=== PATIENT | male | born 1960 | race Caucasian/White ===

== ENCOUNTER 2020-01-26 07:00 | Outpatient (CLI) | payer MEDICARE | END 2020-01-26 23:59 | disposition home or self-care (01) | LOC: LAB.R 07:00 | PROVIDERS: ATTEND Physician Assistant Medical | DX: L03.116 Cellulitis of left lower limb (principal) | CPT/HCPCS: 87070; 87205 ==

== ENCOUNTER 2020-01-26 07:00 | Outpatient (CLI) | payer MEDICARE ==
[2020-01-26 15:24] LABS: BASOPHILS # (AUTO) 0.1 10^3/uL (0.0-0.1); BASOPHILS % (AUTO) 0.5 %; EOSINOPHILS # (AUTO) 0.1 10^3/uL (0.0-0.7); EOSINOPHILS % (AUTO) 0.9 %; HGB - HEMOGLOBIN 13.7 g/dL (14.0-18.0); LYMPHOCYTES # (AUTO) 2.3 10^3/uL (1.5-3.5); LYMPHOCYTES % (AUTO) 25.3 %; MEAN CORPUSCULAR HEMOGLOBIN 33.3 pg (27.0-31.0); MEAN CORPUSCULAR VOLUME 97.8 fL (80.0-94.0); MEAN PLATELET VOLUME 8.9 fL (7.4-11.4); MONOCYTES # (AUTO) 1.2 10^3/uL (0.0-1.0); MONOCYTES % (AUTO) 12.7 %; NEUTROPHILS # (AUTO) 5.5 10^3/uL (1.5-6.6); NEUTROPHILS % (AUTO) 60.2 %; PLT - PLATELET COUNT 313 10^3/uL (130-450); RED BLOOD COUNT 4.12 10^6/uL (4.70-6.10); RED CELL DISTRIBUTION WIDTH 13.5 % (12.0-15.0); WHITE BLOOD COUNT 9.1 x10^3/uL (4.8-10.8)
[2020-01-26 15:30] LABS: ALBUMIN 3.7 g/dL (3.2-5.5); ALBUMIN/GLOBULIN RATIO 1.2 (1.0-2.2); BILIRUBIN,TOTAL 0.5 mg/dL (0.2-1.0); CALCIUM 8.9 mg/dL (8.5-10.3); CREATININE 0.9 mg/dL (0.6-1.2); TOTAL PROTEIN 6.8 g/dL (6.7-8.2)
== END 2020-01-26 23:59 | disposition home or self-care (01) ==
LOC: LAB.S 07:00
PROVIDERS: ATTEND Physician Assistant Medical
DX: L03.116 Cellulitis of left lower limb (principal); R00.0 Tachycardia, unspecified
CPT/HCPCS: 36415; 80053; 84443; 85025; 87070; 87205

== ENCOUNTER 2021-02-12 09:18 | Outpatient (CLI) | payer MEDICARE ==
[2021-02-12 15:51] LABS: CREATININE 0.8 mg/dL (0.6-1.2); POTASSIUM 4.3 mmol/L (3.5-5.0)
== END 2021-02-12 09:19 | disposition home or self-care (01) ==
LOC: LAB.S 09:18
PROVIDERS: ATTEND Nurse Practitioner Family
DX: E87.1 Hypo-osmolality and hyponatremia (principal)
CPT/HCPCS: 36415; 80048

== ENCOUNTER 2021-03-01 09:50 | Observation (INO) | payer MEDICARE ==
--- NOTE | 2021-03-01 10:09 | ED Physician Documentation ---
PD HPI DYSPNEA - Stated complaint Stated Complaint: SOA - Chief complaint Chief Complaint: Resp - History obtained from History obtained from: Patient - History of Present Illness Timing - onset: How many days ago (3-4 days of progressive dyspnea and orthopnea.) Timing - onset during: Light activity Timing - duration: Days Timing - details: Gradual onset, Still present Inciting event(s): No: Out of meds, URI Improved by: Rest, Sitting up Worsened by: Exertion, Laying flat Associated symptoms: Palpitations, Bilateral edema. No: Fever, Cough, Wheezing, Chest pain / discomfort Similar symptoms before: Diagnosis (CHF with atrial fib rapid rate a year ago) Recently seen: Not recently seen Review of Systems Constitutional: denies: Fever, Chills Nose: denies: Rhinorrhea / runny nose, Congestion Throat: denies: Sore throat Cardiac: reports: Palpitations, Pedal edema. denies: Chest pain / pressure, Calf pain Respiratory: reports: Dyspnea. denies: Cough, Wheezing GI: reports: Nausea. denies: Abdominal Pain, Vomiting, Diarrhea Musculoskeletal: denies: Neck pain, Back pain Neurologic: reports: Generalized weakness. denies: Focal weakness, Numbness, Near syncope, Altered mental status, Headache PD PAST MEDICAL HISTORY - Past Medical History Cardiovascular: Congestive heart failure, Hypertension, Atrial fibrillation Respiratory: None Neuro: None Endocrine/Autoimmune: None - Past Surgical History Past Surgical History: Yes - Present Medications Home Medications: Ambulatory Orders Medication Instructions Recorded Confirmed Apixaban [Eliquis] 5 mg PO BID #60 tablet 02/06/20 Spironolactone [Aldactone] 25 mg PO DAILY #30 tablet 02/06/20 Furosemide [Lasix] 40 mg PO DAILY #6 tablet 03/01/21 carvediloL [Coreg] 6.25 mg PO BIDWM 03/01/21 03/01/21 dilTIAZem HCL [Diltiazem 24Hr ER 240 mg PO DAILY 03/01/21 03/01/21 (Xr)] lisinopriL [Lisinopril] 40 mg PO DAILY 03/01/21 03/01/21 - Allergies Allergies/Adverse Reactions: Allergies Allergy/AdvReac Type Severity Reaction Status Date / Time No Known Drug Allergies Allergy Verified 03/01/21 09:58 - Social History Does the pt smoke?: Yes Smoking Status: Current every day smoker Does the pt drink ETOH?: No Does the pt have substance abuse?: No PD ED PE NORMAL - Vitals Vital signs reviewed: Yes - General General: Alert and oriented X 3, Well developed/nourished - HEENT HEENT: Moist mucous membranes, Pharynx benign - Neck Neck: Supple, no meningeal sign, No adenopathy - Cardiac Cardiac: No: RRR (irregular and fast rate. ) - Respiratory Respiratory: No: Clear bilaterally (crackles bilateral lower lieberman. ) - Abdomen Abdomen: Soft, Non tender. No: Normal bowel sounds (decreased bowel sounds. ) - Back Back: No CVA TTP - Derm Derm: Normal color, Warm and dry - Extremities Extremities: No tenderness to palpate, Normal ROM s pain, No calf tenderness / cord, Other (2+ edema both lower legs. ) - Neuro Neuro: Alert and oriented X 3, No motor deficit, Normal speech Results - Vitals Vitals: Vital Signs - 24 hr 03/01/21 03/01/21 03/01/21 09:52 10:59 11:57 Temperature 36.6 C Heart Rate 108 H 82 62 Respiratory 22 14 24 Rate Blood Pressure 141/93 H 150/97 H O2 Saturation 95 98 Oxygen O2 Source Room air - EKG (time done) 10:16 Rate: Rate (enter#) (118) Rhythm: Atrial fibrillation [place]: RAD Intervals: Wide QRS Ischemia: Normal ST segments. No: ST elevation c/w ischemia, ST depression Compare to prior EKG: Unchanged from prior EKG - Labs Labs: Laboratory Tests 03/01/21 03/01/21 03/01/21 10:30 10:30 10:30 WBC 7.2 RBC 4.79 Hgb 14.9 Hct 43.9 MCV 91.6 MCH 31.1 H MCHC 33.9 RDW 14.6 Plt Count 227 MPV 8.6 Neut # (Auto) 4.6 Lymph # (Auto) 1.7 Snyder # (Auto) 0.9 Eos # (Auto) 0.0 Baso # (Auto) 0.0 Absolute Nucleated RBC 0.00 Nucleated RBC % 0.0 Sodium 133 L Potassium 4.1 Chloride 100 L Carbon Dioxide 23 Anion Gap 10.0 BUN 10 Creatinine 0.6 Estimated GFR (MDRD) 137 Glucose 110 H Calcium 9.0 Magnesium Total Bilirubin 1.3 H AST 22 ALT 27 Alkaline Phosphatase 113 Troponin I High Sens 27.0 H* B-Natriuretic Peptide Total Protein 7.4 Albumin 3.9 Globulin 3.5 Albumin/Globulin Ratio 1.1 Lipase 32 Nasal Adenovirus (PCR) Nasal B. parapertussis DNA (PCR) Nasal Coronavir 229E PCR Nasal Coronavir HKU1 PCR Nasal Coronavir NL63 PCR Nasal Coronavir OC43 PCR Nasal Enterovir/Rhinovir PCR Nasal Influenza B PCR Nasal Influenza A PCR Nasal Parainfluen 1 PCR Nasal Parainfluen 2 PCR Nasal Parainfluen 3 PCR Nasal Parainfluen 4 PCR Nasal RSV (PCR) Nasal B.pertussis DNA PCR Nasal C.pneumoniae (PCR) Trevon Human Metapneumo PCR Nasal M.pneumoniae (PCR) Nasal SARS-CoV-2 (PCR) 03/01/21 03/01/21 03/01/21 10:30 10:30 11:35 WBC RBC Hgb Hct MCV MCH MCHC RDW Plt Count MPV Neut # (Auto) Lymph # (Auto) Snyder # (Auto) Eos # (Auto) Baso # (Auto) Absolute Nucleated RBC Nucleated RBC % Sodium Potassium Chloride Carbon Dioxide Anion Gap BUN Creatinine Estimated GFR (MDRD) Glucose Calcium Magnesium 2.0 Total Bilirubin AST ALT Alkaline Phosphatase Troponin I High Sens B-Natriuretic Peptide 1252 H Total Protein Albumin Globulin Albumin/Globulin Ratio Lipase Nasal Adenovirus (PCR) NOT DETECTED Nasal B. parapertussis DNA (PCR) NOT DETECTED Nasal Coronavir 229E PCR NOT DETECTED Nasal Coronavir HKU1 PCR NOT DETECTED Nasal Coronavir NL63 PCR NOT DETECTED Nasal Coronavir OC43 PCR NOT DETECTED Nasal Enterovir/Rhinovir PCR NOT DETECTED Nasal Influenza B PCR NOT DETECTED Nasal Influenza A PCR NOT DETECTED Nasal Parainfluen 1 PCR NOT DETECTED Nasal Parainfluen 2 PCR NOT DETECTED Nasal Parainfluen 3 PCR NOT DETECTED Nasal Parainfluen 4 PCR NOT DETECTED Nasal RSV (PCR) NOT DETECTED Nasal B.pertussis DNA PCR NOT DETECTED Nasal C.pneumoniae (PCR) NOT DETECTED Trevon Human Metapneumo PCR NOT DETECTED Nasal M.pneumoniae (PCR) NOT DETECTED Nasal SARS-CoV-2 (PCR) NOT DETECTED - Rads (name of study) chest xray Radiology: Prelim report reviewed (c/w CHF), See rad report PD MEDICAL DECISION MAKING - ED course Complexity details: reviewed results, re-evaluated patient (The patient was going to be admitted for further care in the hospitalist talked with him. Subsequent to that however he states he did not want to stay in the hospital as he had pets at home to take care of and declined admission.), considered differential (He is having some improvement in breathing with decreased heart rate and blood pressure. However he has not diuresed much yet. I think this will be a longer process for improvement and I will talk with the hospitalist.), d/w patient ED course: He did diurese about 400 mL with a dose of IV Lasix. His breathing was feeling some improved. Redose of the Lasix. Subsequently he put out another 500 mL. He still had some shortness of breath but much less tachypneic than he was. His heart rate is improved with the extra dose of metoprolol. I think it will still be a little bit longer process to improve but he is insistent on going home after subsequent initial agreeing to a hospitalization. Departure - Departure Disposition: 01 Home, Self Care Clinical Impression: Tachycardia CHF (congestive heart failure) Qualifiers: Heart failure type: unspecified Heart failure chronicity: acute on chronic Qualified Code(s): I50.9 - Heart failure, unspecified Dyspnea Qualifiers: Dyspnea type: shortness of breath Qualified Code(s): R06.02 - Shortness of breath Atrial fibrillation Qualifiers: Atrial fibrillation type: unspecified chronic Qualified Code(s): I48.20 - Chronic atrial fibrillation, unspecified Condition: Stable Record reviewed to determine appropriate education?: Yes Discharge Date/Time: 03/01/21 14:18
[2021-03-01 10:39] LABS: BASOPHILS % (AUTO) 0.4 %; EOSINOPHILS % (AUTO) 0.4 %; HCT - HEMATOCRIT 43.9 % (42.0-52.0); HGB - HEMOGLOBIN 14.9 g/dL (14.0-18.0); LYMPHOCYTES # (AUTO) 1.7 10^3/uL (1.5-3.5); LYMPHOCYTES % (AUTO) 23.4 %; MEAN CORPUSCULAR HEMOGLOBIN 31.1 pg (27.0-31.0); MEAN CORPUSCULAR HGB CONC 33.9 g/dL (32.0-36.0); MEAN CORPUSCULAR VOLUME 91.6 fL (80.0-94.0); MEAN PLATELET VOLUME 8.6 fL (7.4-11.4); MONOCYTES # (AUTO) 0.9 10^3/uL (0.0-1.0); MONOCYTES % (AUTO) 12.6 %; NEUTROPHILS # (AUTO) 4.6 10^3/uL (1.5-6.6); NEUTROPHILS % (AUTO) 63.1 %; PLT - PLATELET COUNT 227 10^3/uL (130-450); RED BLOOD COUNT 4.79 10^6/uL (4.70-6.10); RED CELL DISTRIBUTION WIDTH 14.6 % (12.0-15.0); WHITE BLOOD COUNT 7.2 x10^3/uL (4.8-10.8)
[2021-03-01] MEDS ORDERED: ALBUTEROL 1 PUFF INH STA (10:43)
[2021-03-01] MEDS ORDERED: METOPROLOL 5 MG/5 ML VIAL IVP STA (10:43)
[2021-03-01] MEDS ORDERED: FUROSEMIDE 40 MG/4 ML VIAL IVP STA ×2 (10:43→11:46)
--- NOTE | 2021-03-01 10:49 | XRAY Report ---
PROCEDURE: Chest 1 View X-Ray INDICATIONS: Chest pain TECHNIQUE: One view of the chest was acquired. COMPARISON: 02/05/2020 FINDINGS: Surgical changes and devices: None. Mediastinum: Heart size is enlarged, and there is moderate vascular congestion present. Minimal blunt ing of both costophrenic angles suggests small pleural effusions. No pneumothorax. Atherosclerotic va scular calcification noted in the aortic arch. Bones and chest wall: No suspicious bony lesions. Overlying soft tissues appear unremarkable. IMPRESSION: Cardiomegaly and moderate vascular congestion, increased from the prior Reviewed by: Philippe Shah MD on 03/01/2021 9:47 AM [facility] Approved by: Philippe Shah MD on 03/01/2021 9:47 AM [facility] Station ID: [id number]
[2021-03-01 10:53] LABS: ALBUMIN 3.9 g/dL (3.2-5.5); ALBUMIN/GLOBULIN RATIO 1.1 (1.0-2.2); BILIRUBIN,TOTAL 1.3 mg/dL (0.2-1.0); CREATININE 0.6 mg/dL (0.6-1.2); POTASSIUM 4.1 mmol/L (3.5-5.0); TOTAL PROTEIN 7.4 g/dL (6.7-8.2)
[2021-03-01] MEDS ORDERED: SODIUM CHLORIDE FLUSH 0.9% 10 ML SYRINGE IVP PRN (12:03)
--- NOTE | 2021-03-01 12:40 | HISTORY & PHYSICAL EXAMINATION ---
Chief Complaint - Chief Complaint Chief Complaint: per ED, SOB Per patient History of Present Illness - Admitted From Admitted From:: ED - History Obtained From Records Reviewed: ED, requesting cardiology History obtained from: ED note , patient - History of Present Illness HPI Comment/Other: Per Ed Patient with reported EF of 20% presented dyspneic w/ palpitations, Hx afib.. Reported 55% EF ~ 2 yrs ago. In ED HR 108, Ra sa02 95%, BP 141/93 BNP 1252 Troponin #1 27 CXR w cardiomegaly and moderate vascular congestion Lasix 80 mg in ED w/ response per RN Echo 01/2020; (here) Aflutter thruought, severe global HK EF 20%. moderate LA d ilation. Mild dilated RV, normal fxn RV, mild pHTN RVSP 43mmhg. Severe LUCINDA Valves Mild TR, Aortic valve no stenosis, Trace AR On regimen inappropriate for EF 20 % Lisinopril 40, diltiazem 240, coreg 6.25 bid, sprionolactone 25 mg po daily, apixabn for afib Per patient; History - Past Medical History Cardiovascular: reports: Congestive heart failure, Hypertension Respiratory: reports: None Neuro: reports: None Endocrine/Autoimmune: reports: None Meds/Allgy - Home Medications Home Medications: Ambulatory Orders Medication Instructions Recorded Confirmed Apixaban [Eliquis] 5 mg PO BID #60 tablet 02/06/20 Spironolactone [Aldactone] 25 mg PO DAILY #30 tablet 02/06/20 carvediloL [Coreg] 6.25 mg PO BIDWM 03/01/21 03/01/21 dilTIAZem HCL [Diltiazem 24Hr ER 240 mg PO DAILY 03/01/21 03/01/21 (Xr)] lisinopriL [Lisinopril] 40 mg PO DAILY 03/01/21 03/01/21 - Allergies Allergies/Adverse Reactions: Allergies Allergy/AdvReac Type Severity Reaction Status Date / Time No Known Drug Allergies Allergy Verified 03/01/21 09:58 Exam - Vital Signs Vital Signs: Vital Signs x48h Temp Pulse Resp BP Pulse Ox 03/01/21 11:57 62 24 150/97 H 98 03/01/21 10:59 82 14 03/01/21 09:52 36.6 C 108 H 22 141/93 H 95 Conclusion/Plan - Lab Results Fish Bones: 03/01/21 10:30 03/01/21 10:30
[2021-03-01 12:47] LABS: B. PARAPERTUSSIS- RESP PCR PAN NOT DETECTED; B. PERTUSSIS- RESP PCR PANEL NOT DETECTED; C. PNEUMONIAE- RESP PCR PANEL NOT DETECTED; CORONAVIRUS 229E-RESP PCR NOT DETECTED; CORONAVIRUS HKU1-RESP PCR NOT DETECTED; CORONAVIRUS NL63-RESP PCR NOT DETECTED; CORONAVIRUS OC43-RESP PCR NOT DETECTED; HUMAN METAPNEUMOVIRUS NOT DETECTED; INFLUENZA A- RESP PCR PANEL NOT DETECTED; INFLUENZA B - RESP PCR PANEL NOT DETECTED; M. PNEUMONIAE- RESP PCR PANEL NOT DETECTED; PARAINFLUENZA VIRUS 1 NOT DETECTED; PARAINFLUENZA VIRUS 2 NOT DETECTED; PARAINFLUENZA VIRUS 3 NOT DETECTED; PARAINFLUENZA VIRUS 4 NOT DETECTED; RHINOVIRUS/ENTEROVIRUS NOT DETECTED; RSV- RESP PCR PANEL NOT DETECTED; SARS-CoV-2 -RESP PCR PANEL NOT DETECTED
[2021-03-01] MEDS ORDERED: ENOXAPARIN 40 MG/0.4 ML SYRINGE SUBQ SCH (13:00)
[2021-03-01 14:16] VITALS: BP 144/88
[2021-03-01] MEDS ORDERED: SODIUM CHLORIDE FLUSH 0.9% 10 ML SYRINGE IVP SCH (17:00)
== END 2021-03-01 14:08 | disposition left against medical advice (07) ==
LOC: ED 09:50 → MS2 12:03
PROVIDERS: ADMIT Nurse Practitioner; ATTEND Nurse Practitioner
DX: I11.0 Hypertensive heart disease with heart failure (principal); I50.9 Heart failure, unspecified; R00.0 Tachycardia, unspecified; I48.20 Chronic atrial fibrillation, unspecified; Z20.822 Contact with and (suspected) exposure to COVID-19; R53.1 Weakness; F17.200 Nicotine dependence, unspecified, uncomplicated
CPT/HCPCS: 0202U; 36415; 51798; 80053; 83690; 83735; 83880; 84484; 85025; 93005; 94640; 96374; 99284

== ENCOUNTER 2021-03-11 10:13 | Outpatient (CLI) | payer MEDICARE ==
[2021-03-11 15:50] LABS: ALBUMIN 3.9 g/dL (3.2-5.5); ALBUMIN/GLOBULIN RATIO 1.1 (1.0-2.2); BILIRUBIN,DIRECT 0.4 mg/dL (0.1-0.5); BILIRUBIN,INDIRECT 0.9 mg/dL; BILIRUBIN,TOTAL 1.3 mg/dL (0.2-1.0); CREATININE 0.7 mg/dL (0.6-1.2); POTASSIUM 3.6 mmol/L (3.5-5.0); TOTAL PROTEIN 7.4 g/dL (6.7-8.2)
== END 2021-03-11 10:14 | disposition home or self-care (01) ==
LOC: LAB.S 10:13
PROVIDERS: ATTEND Nurse Practitioner Family
DX: I50.9 Heart failure, unspecified (principal); R17 Unspecified jaundice
CPT/HCPCS: 36415; 80053; 82247; 82248; 83880

== ENCOUNTER 2021-07-29 08:45 | Outpatient (CLI) | payer MEDICARE ==
--- NOTE | 2021-07-29 10:50 | XRAY Report ---
PROCEDURE: Chest 2 View X-Ray INDICATIONS: HEART FAILURE TECHNIQUE: 2 view(s) of the chest. COMPARISON: 03/01/2021 plain film FINDINGS: Surgical changes and devices: None. Lungs and pleura: No pleural effusions or pneumothorax. Moderate basilar predominant interstitial pu lmonary opacity. Mediastinum: Mediastinal contours are normal. Heart size is enlarged. Bones and chest wall: No suspicious bony abnormalities. Soft tissues appear unremarkable. IMPRESSION: Findings consistent with the given history of moderate CHF. Reviewed by: Rehan Feliciano MD on 07/29/2021 10:48 AM [facility] Approved by: Rehan Feliciano MD on 07/29/2021 10:48 AM [facility] Station ID: [id number]
== END 2021-07-29 08:46 | disposition home or self-care (01) ==
LOC: DI.S 08:45
PROVIDERS: ATTEND Internal Medicine
DX: I50.9 Heart failure, unspecified (principal)

== ENCOUNTER 2021-09-19 09:20 | Outpatient (CLI) | payer MEDICARE ==
--- NOTE | 2021-09-19 10:37 | XRAY Report ---
PROCEDURE: Wrist 2 View LT INDICATIONS: PAIN OF LEFT WRIST TECHNIQUE: 2 views of the wrist were acquired. COMPARISON: None FINDINGS: Bones: No fractures or dislocations. Moderate osteoarthritic changes throughout left wrist is seen. No suspicious bony lesions. Scaphoid view: Scaphoid is grossly intact. Soft tissues: No suspicious soft tissue calcifications. IMPRESSION: Moderate wrist joint osteophyte is. No fracture or dislocation. Reviewed by: Jose Nascimento MD on 09/19/2021 10:36 AM PDT Approved by: Jose Nascimento MD on 09/19/2021 10:36 AM PDT Station ID: [id number]
== END 2021-09-19 09:21 | disposition home or self-care (01) ==
LOC: DI.S 09:20
PROVIDERS: ATTEND Internal Medicine
DX: M19.032 Primary osteoarthritis, left wrist (principal)

== ENCOUNTER 2021-11-23 14:52 | Outpatient (CLI) | payer MEDICARE ==
--- NOTE | 2021-11-23 17:21 | XRAY Report ---
PROCEDURE: Hand 3 View LT INDICATIONS: PAIN OF LEFT HAND TECHNIQUE: 3 views of the hand(s) acquired. COMPARISON: None FINDINGS: Bones: No fractures or dislocations. Cortical surface irregularity along the ventral aspect of the f ourth distal phalanx. Fourth DIP joint is held in flexion. Numerous cystic changes seen within the jazmyn yelena of the proximal carpal row. Moderate degeneration at the first CMC joint. No suspicious bony lesi ons. Soft tissues: No suspicious soft tissue calcifications. IMPRESSION: 1. Slight contracture of the fourth DIP joint. 2. Mild cortical irregularity of the fourth distal phalanx suggesting remote trauma. 3. Moderate subcortical cystic changes in the wrist. Reviewed by: Monalisa Mitchell MD on 11/23/2021 5:19 PM PDT Approved by: Monalisa Mitchell MD on 11/23/2021 5:19 PM PDT Station ID: [id number]
== END 2021-11-23 14:53 | disposition home or self-care (01) ==
LOC: DI.S 14:52
PROVIDERS: ATTEND Nurse Practitioner Family
DX: M24.542 Contracture, left hand (principal); R93.6 Abnormal findings on diagnostic imaging of limbs; M85.68 Other cyst of bone, other site

== ENCOUNTER 2022-10-02 07:42 | Emergency (ER) | payer MEDICARE, MEDICAID ==
[2022-10-02 07:51] VITALS: BP 130/88
[2022-10-02] MEDS ORDERED: predniSONE 20 MG TABLET PO STA (08:22)
--- NOTE | 2022-10-02 08:25 | ED Physician Documentation ---
History of Present Illness - Stated complaint Stated Complaint: L FOOT PX - Chief complaint Chief Complaint: Ext Problem - History obtained from History obtained from: Patient - Additonal information Additional information: The patient comes to the emergency department chief complaint of left foot pain. He states that its been hurting for the last few days and he did not have any trauma. He has been using a cane to try to unburden his foot a bit. He notices that it starts over the dorsum and arcs down towards the lateral aspect. He does not feel any popping or clicking. He has no history of prior injury, bone spurs, gout, or neuropathy. He denies any redness. He has noticed a slight bit of swelling over the area of pain. No new issues. He does not have any hip or knee problems on either side. The patient states that he is right side dominant. PD PAST MEDICAL HISTORY - Past Medical History Cardiovascular: Congestive heart failure, Hypertension, Atrial fibrillation Respiratory: None Neuro: None Endocrine/Autoimmune: None - Past Surgical History Past Surgical History: Yes - Present Medications Home Medications: Ambulatory Orders Medication Instructions Recorded Confirmed Apixaban [Eliquis] 5 mg PO BID #60 tablet 02/06/20 Spironolactone [Aldactone] 25 mg PO DAILY #30 tablet 02/06/20 Furosemide [Lasix] 40 mg PO DAILY #6 tablet 03/01/21 carvediloL [Coreg] 6.25 mg PO BIDWM 03/01/21 03/01/21 dilTIAZem HCL [Diltiazem 24Hr ER 240 mg PO DAILY 03/01/21 03/01/21 (Xr)] lisinopriL [Lisinopril] 40 mg PO DAILY 03/01/21 03/01/21 predniSONE [Deltasone] 10 mg PO [id number] #42 tab 10/02/22 - Allergies Allergies/Adverse Reactions: Allergies Allergy/AdvReac Type Severity Reaction Status Date / Time No Known Drug Allergies Allergy Verified 10/02/22 07:51 - Social History Does the pt smoke?: Yes Smoking Status: Current every day smoker Does the pt drink ETOH?: No Does the pt have substance abuse?: No PD ED PE NORMAL - Vitals Vital signs reviewed: Yes - General General: Alert and oriented X 3, No acute distress, Well developed/nourished - HEENT HEENT: Atraumatic, PERRL, EOMI, Moist mucous membranes - Neck Neck: Supple, no meningeal sign - Cardiac Cardiac: Strong equal pulses - Respiratory Respiratory: No respiratory distress - Derm Derm: Warm and dry, Other (Purpleish discoloration of bilateral lower extremities in both hands, consistent with peripheral vascular disease. No erythema.) - Extremities Extremities: No deformity, Other (Minimal edema over left foot with tenderness starting at midline dorsum and extending down over lateral foot. No deformity. No instability. No plantar tenderness. No ankle tenderness.) - Neuro Neuro: Alert and oriented X 3 - Psych Psych: Normal mood, Normal affect Results - Vitals Vitals: Vital Signs - 24 hr 10/02/22 07:48 Temperature 36.0 C L Heart Rate 93 Respiratory 18 Rate Blood Pressure 130/88 H O2 Saturation 99 Oxygen O2 Source Room air - Rads (name of study) Left foot x-ray series Relevant Findings:: Final report received, See rad report (No acute findings) PD Medical Decision Making - ED course Complexity details: reviewed results, re-evaluated patient, considered differential, d/w patient ED course: The patient was treated symptomatically with prednisone in the emergency department, as he is already taking ibuprofen at home. He does have an appointment coming up with podiatry in [place] on November 03, but states he is mainly concerned about wanting to feel better before then. We have discussed nontraumatic potential causes of his foot pain, including soft tissue inflammation, peripheral neuropathy, and gout, though I think the latter is less likely. I do not see any bone spurs on his x-ray series. We discussed that perhaps getting a more cushioned insert for his shoes would be helpful, as he is wearing Real hightops, which are not supportive at all. I have written him a prescription for a cushioned insert. I have also given him the phone number of the podiatry clinic in [place] for an alternative follow-up. Departure - Departure Disposition: 01 Home, Self Care Clinical Impression: Foot pain, left Condition: Stable Instructions: Metatarsalgia, Tendinitis Foot Follow-Up: Amadeo Gudino DPM [Physician No Access] - Prescriptions: predniSONE [Deltasone] 10 mg PO [id number] #42 tab Comments: Your x-rays look good. Your prescription for the steroid has been electr onically transmitted to the [facility] pharmacy in [place]. You may follow-up at the [place] [facility], but you may also try [facility] in [place] if you want to see if you can be seen sooner. The number has been provided below. Please take the ibuprofen and the steroid as needed. You may go to the pharmacy or to [facility] to get a more cushioned inserts for your shoes and see if this helps. You may also use the cane as needed.
--- NOTE | 2022-10-02 13:45 | XRAY Report ---
PROCEDURE: Foot 3 View LT INDICATIONS: foot pain, atraumatic TECHNIQUE: 3 views of the foot were acquired. COMPARISON: None FINDINGS: Bones: No fractures or dislocations. No suspicious bony lesions. Soft tissues: No tibiotalar joint effusion. Achilles tendon appears normal. IMPRESSION: No evidence acute bony abnormality of the left foot. If clinical suspicion and/or symptoms persist, further assessment with repeat plain films or advanced imaging (e.g., CT, MRI, or bone scan) may be helpful for further assessment. Reviewed by: Iam Knight MD on 10/02/2022 8:20 AM PDT Approved by: Iam Knight MD on 10/02/2022 8:20 AM PDT Station ID: [id number]
== END 2022-10-02 08:44 | disposition home or self-care (01) ==
LOC: ED 07:42
DX: M79.672 Pain in left foot (principal); I11.0 Hypertensive heart disease with heart failure; I50.9 Heart failure, unspecified; F17.200 Nicotine dependence, unspecified, uncomplicated; I48.91 Unspecified atrial fibrillation; Z79.01 Long term (current) use of anticoagulants; Z79.899 Other long term (current) drug therapy
CPT/HCPCS: 99283

== ENCOUNTER 2022-10-10 09:02 | Outpatient (CLI) | payer MEDICARE, MEDICAID ==
--- NOTE | 2022-10-10 12:02 | CT Report ---
PROCEDURE: Low Dose Lung Cancer Screen INDICATIONS: EX SMOKER TECHNIQUE: Noncontrast low-dose axial images were acquired from the pulmonary apices to the posterior costophren ic angles. Multiplanar MIP reformats were then reconstructed. For radiation dose reduction, the follo wing was used: automated exposure control, adjustment of mA and/or kV according to patient size. COMPARISON: None. FINDINGS: Image quality: Excellent. Prior cancer history: No. Lungs and pleura: No pleural effusions. No pneumothorax. Numerous tiny bilateral pulmonary pulmonary nodules, most of which are 2 mm or less, some of which are calcified, consistent with chronic granul omatous disease. Mediastinum: Heart size is mildly enlarged. Trace pericardial effusion. No mediastinal adenopathy by size criteria. No large vessel abnormality. No significant coronary calcifications. Chest wall and lower neck: Thyroid is unremarkable. No axillary or supraclavicular adenopathy by size . Bones: No aggressive osseous abnormality. Upper Abdomen: Unremarkable. IMPRESSION: Lung RAD: 2 - Benign. Recommendation: Continue annual screening in 12 Months with LDCT Non-Lung Significant Findings: Mild cardiomegaly. Reviewed by: Iam Knight MD on 10/10/2022 12:00 PM PDT Approved by: Iam Knight MD on 10/10/2022 12:00 PM PDT Station ID: [id number]
== END 2022-10-10 09:03 | disposition home or self-care (01) ==
LOC: DI 09:02
PROVIDERS: ATTEND Nurse Practitioner Family
DX: Z12.2 Encounter for screening for malignant neoplasm of respiratory organs (principal); Z87.891 Personal history of nicotine dependence

== ENCOUNTER 2023-01-10 06:38 | Outpatient (CLI) | payer MEDICARE, MEDICAID ==
--- NOTE | 2023-01-10 08:54 | Ultrasound Report ---
PROCEDURE: Aorta Screening INDICATIONS: HIST OF SMOKING TECHNIQUE: Real time scanning was performed of the aorta and iliac arteries, with image documentatio n. COMPARISON: None. FINDINGS: Aorta: Proximal aortic diameter measures 2.9 x 2.9 cm. Mid-aorta measures 2.1 x 2.3 cm. Distal aor tic diameter is 2.1 x 2.1 cm. Iliac arteries: Right common iliac artery measures 1.6 x 1.6 cm. Left common iliac artery measures 1.3 x 1.4 cm. IMPRESSION: No infrarenal aortic aneurysm. Reviewed by: Rock Jha on 01/10/2023 8:53 AM PDT Approved by: Rock Jha on 01/10/2023 8:53 AM PDT Station ID: [id number]
== END 2023-01-10 06:39 | disposition home or self-care (01) ==
LOC: DI 06:38
PROVIDERS: ATTEND Internal Medicine
DX: Z13.6 Encounter for screening for cardiovascular disorders (principal); Z87.891 Personal history of nicotine dependence

== ENCOUNTER 2023-09-27 13:41 | Outpatient (CLI) | payer MEDICARE, MEDICAID ==
--- NOTE | 2023-09-27 15:12 | XRAY Report ---
PROCEDURE: Wrist 3+V RT INDICATIONS: HAND AND WRIST PAIN AND SWELLING TECHNIQUE: 3 views of the wrist were acquired. COMPARISON: None. FINDINGS: Bones: No fractures or dislocations. No suspicious bony lesions. Soft tissues: No suspicious soft tissue calcifications or masses. IMPRESSION: No visualized acute fracture or dislocation. However, occult injury cannot be excluded. Recommend luiza rt interval imaging follow-up in 7-10 days as clinically indicated for additional evaluation. Reviewed by: Luba Walls MD on 09/27/2023 3:11 PM PDT Approved by: Luba Walls MD on 09/27/2023 3:11 PM PDT Station ID: [id number]
--- NOTE | 2023-09-27 19:45 | XRAY Report ---
PROCEDURE: Hand 3+V RT INDICATIONS: HAND AND WRIT PAIN AND SWELLING TECHNIQUE: 3 views of the hand(s) acquired. COMPARISON: None. FINDINGS: Bones: No fractures or dislocations. Osteoarthritic changes are noted throughout right-hand and wri st joints with joint space narrowing, subchondral sclerosis and small marginal osteophyte formation m ost notably involving first CMC joint and scaphotrapezial joint. No definite bony erosive changes are seen. No suspicious bony lesions. Soft tissues: No suspicious soft tissue calcifications or masses. Dorsal right hand soft tissue sw elling. IMPRESSION: No acute bony abnormality. Dorsal right hand soft tissue swelling. 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 Reviewed by: Jose Vega MD on 09/27/2023 7:44 PM PDT Approved by: Jose Vega MD on 09/27/2023 7:44 PM PDT Station ID: [id number]
== END 2023-09-27 13:42 | disposition home or self-care (01) ==
LOC: DI 13:41
PROVIDERS: ATTEND Student in an Organized Health Care Education/Training Program
DX: R22.31 Localized swelling, mass and lump, right upper limb (principal); M19.041 Primary osteoarthritis, right hand; M19.031 Primary osteoarthritis, right wrist

== ENCOUNTER 2023-10-06 05:57 | Emergency (ER) | payer MEDICARE, MEDICAID ==
[2023-10-06 06:19] VITALS: BP 132/77; O2SAT 96
--- NOTE | 2023-10-06 06:34 | ED Physician Documentation ---
History of Present Illness - Stated complaint Stated Complaint: R HAND SWELLING - Chief complaint Chief Complaint: Ext Problem - History obtained from History obtained from: Patient - Additonal information Additional information: 63yM with pmh gout, arthritis, prior gout flares in the right hand p/w R hand swelling X couple days. he took leftover prednisone at home with improvement but then ran out and the swelling and pain got worse again. denies fever, acute injury. he had xrays done a couple days ago. PD PAST MEDICAL HISTORY - Past Medical History Cardiovascular: Congestive heart failure, Hypertension, Atrial fibrillation Respiratory: None Neuro: None Endocrine/Autoimmune: None Other Past Medical History: gout - Past Surgical History Past Surgical History: Yes Cardiovascular: Pacemaker - Present Medications Home Medications: Ambulatory Orders Medication Instructions Recorded Confirmed Apixaban [Eliquis] 5 mg PO BID #60 tablet 02/06/20 10/06/23 Furosemide [Lasix] 40 mg PO DAILY #6 tablet 03/01/21 10/06/23 dilTIAZem HCL [Diltiazem 24Hr ER 240 mg PO DAILY 03/01/21 10/06/23 (Xr)] Metoprolol Succinate [Toprol Xl] 1 tab PO DAILY 10/06/23 10/06/23 Varenicline Tartrate [Chantix] 1 tab PO DAILY 10/06/23 10/06/23 predniSONE [Deltasone] 60 mg PO QDAC #21 tab 10/06/23 predniSONE [Prednisone 21-TAB dose 60 mg PO QDAC 6 Days #21 tab 10/06/23 pack] - Allergies Allergies/Adverse Reactions: Allergies Allergy/AdvReac Type Severity Reaction Status Date / Time No Known Drug Allergies Allergy Verified 10/06/23 06:05 - Social History Does the pt smoke?: Yes Smoking Status: Current every day smoker Does the pt drink ETOH?: No Does the pt have substance abuse?: No PD ED PE NORMAL - Vitals Vital signs reviewed: Yes - General General: Alert and oriented X 3, No acute distress, Well developed/nourished - HEENT HEENT: Atraumatic, PERRL, EOMI - Neck Neck: Supple, no meningeal sign - Derm Derm: Normal color, Warm and dry - Extremities Extremities: Other (R hand and mcp joint swelling. ttp. 2+ radial pulse. csm intact) Results - Vitals Vitals: Vital Signs - 24 hr 10/06/23 06:01 Temperature 36 C L Heart Rate 76 Respiratory 24 Rate Blood Pressure 132/77 H O2 Saturation 96 Oxygen O2 Source Room air PD Medical Decision Making - ED course ED course: 63yM p/w acute gout flare. treated with oral steroids and rx sent to pharmacy. return precautions given. Departure - Departure Disposition: Home, Self Care Clinical Impression: Gout flare Condition: Stable Instructions: Gout Attack Tx Prescriptions: predniSONE [Deltasone] 60 mg PO QDAC #21 tab predniSONE [Prednisone 21-TAB dose pack] 60 mg PO QDAC 6 Days #21 tab Comments: You were seen in the emergency department for gout flare. Your xrays showed no bone issues though you do have arthritis. Electronic rx for prednisone sent to [facility] in [place]. You can start by taking 60 mg of prednisone daily. When you start to feel better you should begin the prednisone taper (from 60 to 50 to 40 to 30 to 20 to 10 daily) before stopping. Please follow-up with your primary care provider and return to the emergency department if you have any new or worsening symptoms or other concerns.
[2023-10-06] MEDS: predniSONE 20 MG TABLET PO STA (06:38)
== END 2023-10-06 06:47 | disposition home or self-care (01) ==
LOC: ED 05:57
DX: M10.9 Gout, unspecified (principal); I11.0 Hypertensive heart disease with heart failure; I50.9 Heart failure, unspecified; I48.91 Unspecified atrial fibrillation; Z79.01 Long term (current) use of anticoagulants; Z79.899 Other long term (current) drug therapy; F17.200 Nicotine dependence, unspecified, uncomplicated
CPT/HCPCS: 99282; 99284; J7512